=== PATIENT | female | born 1955 | race Hispanic/Latino ===

== ENCOUNTER 2017-08-22 01:00 | Emergency (ER) | payer BC, OTHER ==
[~2017-08-22 01:00] MED LIST: AMLO2.5T PO; ASPI-1197 PO; CHOL500050 PO; CLON0.1T PO; LEVO500T2 PO; LOSA50TA37 PO; METF500T6 PO
[2017-08-22 01:15] LABS: APPEARANCE,URINE Clear (CLEAR); BILIRUBIN,URINE Negative (NEGATIVE); COLOR,URINE Yellow (YELLOW); GLUCOSE, URINE (UA) TRACE mg/dL (NEGATIVE); KETONES,URINE Negative (NEGATIVE); LEUKOCYTE ESTERASE ,URINE Trace (NEGATIVE); NITRATE,URINE Negative (NEGATIVE); OCCULT BLOOD,URINE Small (NEGATIVE); PROTEIN,URINE POS 2+ (NEGATIVE); UROBILINOGEN,URINE 0.2 mg/dL (0.2-1.0)
[2017-08-22] MEDS ORDERED: METOPROLOL TARTRATE 1 MG/ML 5ML VIAL IV ONE (01:25)
[2017-08-22] MEDS ORDERED: ASPIRIN 325 MG TABLET ONE (01:25)
[2017-08-22 01:27] LABS: RBC,URINE 0-1 /HPF (0-1)
[2017-08-22 01:28] LABS: BACTERIA,URINE Rare /HPF (None Seen); SQUAMOUS EPITHELIAL CELL,UR Rare /HPF (0-2)
[2017-08-22 01:34] LABS: BASOPHILS % (AUTO) 0.8 % (0.0-5.0); EOSINOPHILS % (AUTO) 2.7 % (0.0-8.0); HEMATOCRIT 40.4 % (36-48); LYMPHOCYTES % (AUTO) 33.4 % (21.0-51.0); MEAN CORPUSCULAR HEMOGLOBIN 29.7 pg (27.0-33.0); MEAN CORPUSCULAR HGB CONC 34.6 g/dL (32.0-36.0); MEAN CORPUSCULAR VOLUME 85.7 fL (79-99); MONOCYTES % (AUTO) 5.1 % (3.0-13.0); NUCLEATED RED BLOOD CELLS 0.2 % (0.0-0.19); PLATELET COUNT (AUTO) 260 K/uL (130-400); RED BLOOD CELL COUNT(AUTO) 4.71 MIL/uL (4.00-5.50); RED CELL DISTRIBUTION WIDTH 13.6 % (11.0-15.5); WHITE BLOOD COUNT (AUTO) 11.1 K/uL (4.8-10.8)
[2017-08-22 01:42] LABS: CREATININE 1.4 mg/dL (0.5-1.5); POTASSIUM 3.4 mmol/L (3.5-5.1)
[2017-08-22 01:58] LABS: ALBUMIN 4.1 g/dL (3.5-5.0); BILIRUBIN,TOTAL 0.4 mg/dL (0.2-1.0); CREATINE KINASE MB 3.3 ng/mL (0.5-3.6); TOTAL PROTEIN, SERUM 7.8 g/dL (6.0-8.3)
== END 2017-08-22 05:50 | disposition home or self-care (01) ==
LOC: EDH 01:00
DX: I16.0 Hypertensive urgency (principal); E11.9 Type 2 diabetes mellitus without complications; K21.9 Gastro-esophageal reflux disease without esophagitis; E78.5 Hyperlipidemia, unspecified; Z88.0 Allergy status to penicillin; Z79.82 Long term (current) use of aspirin
CPT/HCPCS: 36415; 71045; 80053; 81001; 82550; 82553; 83690; 84484 ×2; 85025; 93005 ×2; 96374; 99285; J3490

== ENCOUNTER 2018-12-06 06:27 | Observation (INO) | payer BC, OTHER ==
[~2018-12-06] VITALS: Ht 167.6 cm; Wt 88.3 kg
[~2018-12-06 06:27] MED LIST changes: -AMLO2.5T PO; +AMLO2.5T4 PO; -LOSA50TA37 PO; +LOSA50TA64 PO; +METF-444 PO; -METF500T6 PO
[2018-12-06 06:48] LABS: BASOPHILS % (AUTO) 0.9 % (0.0-5.0); EOSINOPHILS % (AUTO) 3.5 % (0.0-8.0); HEMATOCRIT 39.7 % (36-48); LYMPHOCYTES % (AUTO) 28.9 % (21.0-51.0); MEAN CORPUSCULAR HEMOGLOBIN 29.9 pg (27.0-33.0); MEAN CORPUSCULAR HGB CONC 34.6 g/dL (32.0-36.0); MEAN CORPUSCULAR VOLUME 86.5 fL (79-99); MONOCYTES % (AUTO) 5.3 % (3.0-13.0); NEUTROPHILS % (AUTO) 61.4 % (40.0-77.0); PLATELET COUNT (AUTO) 270 K/uL (130-400); RED BLOOD CELL COUNT(AUTO) 4.59 MIL/uL (4.00-5.50); RED CELL DISTRIBUTION WIDTH 12.8 % (11.0-15.5); WHITE BLOOD COUNT (AUTO) 10.3 K/uL (4.8-10.8)
[2018-12-06] MEDS ORDERED: ASPIRIN 325 MG TABLET ONE (06:48)
[2018-12-06 07:02] LABS: CREATININE 1.5 mg/dL (0.5-1.5); POTASSIUM 3.4 mmol/L (3.5-5.1)
[2018-12-06 07:03] LABS: ALBUMIN 4.1 g/dL (3.5-5.0); BILIRUBIN,TOTAL 0.3 mg/dL (0.2-1.0)
[2018-12-06 07:22] LABS: INR 0.9 (0.85-1.15); PROTHROMBIN TIME 9.5 SEC (9.6-11.6)
[2018-12-06 07:48] LABS: B-TYPE NATRIURETIC PEPTIDE 6 pg/mL (0-100)
[2018-12-06 08:50] LABS: APPEARANCE,URINE Clear (CLEAR); BILIRUBIN,URINE Negative (NEGATIVE); COLOR,URINE Yellow (YELLOW); GLUCOSE, URINE (UA) 500 mg/dL (NEGATIVE); KETONES,URINE Negative (NEGATIVE); LEUKOCYTE ESTERASE ,URINE Trace (NEGATIVE); NITRATE,URINE Negative (NEGATIVE); OCCULT BLOOD,URINE Negative (NEGATIVE); PH,URINE 6.5 (5.0-8.0); PROTEIN,URINE Trace mg/dL (NEGATIVE); UROBILINOGEN,URINE 0.2 mg/dL (0.2-1.0)
[2018-12-06] MEDS: ASPIRIN 325 MG TABLET PO SCH (09:00)
[2018-12-06] MEDS: ENOXAPARIN SODIUM 30 MG/0.3 ML SQ SCH (09:00)
[2018-12-06] MEDS ORDERED: ACETAMINOPHEN 325 MG TAB PO PRN (09:00)
[2018-12-06] MEDS ORDERED: ONDANSETRON HCL 4 MG/2 ML VIAL IV PRN (09:00)
[2018-12-06 09:14] LABS: BACTERIA,URINE None Seen /HPF (None Seen); RBC,URINE 0-1 /HPF (0-1); SQUAMOUS EPITHELIAL CELL,UR 0-2 /HPF (0-2); WBC,URINE 0-1 /HPF (0-1)
[2018-12-06] MEDS ORDERED: ENOXAPARIN SODIUM 30 MG/0.3 ML SQ ONE (09:56)
[2018-12-06] MEDS ORDERED: NITROGLYCERIN 1GM/1 INCH PACKET TD ONE ×2 (09:56→17:55)
[2018-12-06 10:13] LABS: CREATINE KINASE, TOTAL 103 U/L (21-232); MYOGLOBIN 62 ng/mL (10-92); TROPONIN I < 0.04 ng/mL (0.00-0.06)
[2018-12-06] MEDS ORDERED: LIDOCAINE HCL-MPF 1% 2ML VIAL IV PRN (12:15)
[2018-12-06] MEDS ORDERED: POTASSIUM CHLORIDE 20 MEQ ERTAB PO PRN (12:15)
[2018-12-06] MEDS ORDERED: POTASSIUM CHLORIDE 20MEQ/100ML 100 ML IV PRN (12:15)
[2018-12-06] MEDS ORDERED: GLUCAGON 1MG KIT 1 MG ML IM PRN (12:15)
[2018-12-06] MEDS ORDERED: DEXTROSE 50%-WATER 50 ML DISP.SYRIN IV PRN (12:15)
[2018-12-06] MEDS ORDERED: POTASSIUM CHLORIDE 10% ELIXIR 20 MEQ/15 ML UDCUP PO PRN (12:15)
[2018-12-06 16:55] LABS: CREATINE KINASE, TOTAL 91 U/L (21-232); MYOGLOBIN 60 ng/mL (10-92); TROPONIN I < 0.04 ng/mL (0.00-0.06)
[2018-12-06 18:50] VITALS: BP 185/119
[2018-12-06 20:00] VITALS: BP 185/119
[2018-12-06] MEDS ORDERED: ERGO500014 PO (20:25)
[2018-12-06] MEDS ORDERED: CLON0.1T PO (20:25)
[2018-12-06] MEDS ORDERED: AMLO5TAB9 PO (20:25)
[2018-12-06] MEDS ORDERED: LOSA100T58 PO (20:25)
[2018-12-06] MEDS ORDERED: ATOR10 PO (20:25)
[2018-12-06] MEDS ORDERED: METF-445 PO (20:25)
[2018-12-06] MEDS ORDERED: PANT40TA25 PO (20:25)
[2018-12-06] MEDS: ACETAMINOPHEN 325 MG TAB PO PRN (20:33)
[2018-12-06] MEDS: INSULIN HUMULIN R 100 UNIT/ML 3ML SQ SCH (21:02)
[2018-12-06] MEDS ORDERED: CLONIDINE HCL 0.1 MG TABLET PO PRN (21:15)
[2018-12-06 22:13] VITALS: BP 164/94
[2018-12-07] VITALS (7 sets, daily range): BP systolic 131–170; BP diastolic 72–95
[2018-12-07] MEDS: NITROGLYCERIN 1GM/1 INCH PACKET TD SCH ×3 (01:15→17:35)
[2018-12-07 01:35] LABS: CREATINE KINASE, TOTAL 70 U/L (21-232); MYOGLOBIN 55 ng/mL (10-92); TROPONIN I < 0.04 ng/mL (0.00-0.06)
[2018-12-07] MEDS: ACETAMINOPHEN 325 MG TAB PO PRN ×2 (02:41→23:05)
[2018-12-07 06:23] LABS: HEMATOCRIT 38.1 % (36-48); MEAN CORPUSCULAR HEMOGLOBIN 29.8 pg (27.0-33.0); MEAN CORPUSCULAR HGB CONC 33.9 g/dL (32.0-36.0); MEAN CORPUSCULAR VOLUME 87.8 fL (79-99); NUCLEATED RED BLOOD CELLS 0.1 % (0.0-0.19); PLATELET COUNT (AUTO) 265 K/uL (130-400); RED BLOOD CELL COUNT(AUTO) 4.34 MIL/uL (4.00-5.50); WHITE BLOOD COUNT (AUTO) 9.9 K/uL (4.8-10.8)
[2018-12-07 06:39] LABS: CREATININE 1.3 mg/dL (0.5-1.5); POTASSIUM 3.6 mmol/L (3.5-5.1)
[2018-12-07 06:50] LABS: EOSINOPHILS % (MANUAL) 4 % (1-6); LYMPHOCYTES % (MANUAL) 26 % (22-44); MAN.DIFF COMMENT-IMPRESSION MANUAL DIFFERENTIAL; MONOCYTES % (MANUAL) 5 % (2-9); PLATELET MORPHOLOGY COMMENT ADEQUATE; REACTIVE LYMPHOCYTES 1 % (0-0); SEGMENTED NEUTROPHILS % 64 % (40-70)
[2018-12-07] MEDS: INSULIN HUMULIN R 100 UNIT/ML 3ML SQ SCH ×4 (06:58→21:00)
[2018-12-07] MEDS: ASPIRIN 325 MG TABLET PO SCH (08:50)
[2018-12-07] MEDS: ASPIRIN 81MG TAB.CHEW PO SCH (08:51)
[2018-12-07] MEDS: ENOXAPARIN SODIUM 30 MG/0.3 ML SQ SCH (08:51)
[2018-12-07] MEDS: PANTOPRAZOLE SODIUM 40 MG TABLET.DR PO SCH (08:51)
[2018-12-07] MEDS: METFORMIN HCL 850 MG TABLET PO SCH ×2 (08:51→21:22)
[2018-12-07] MEDS: LOSARTAN 100 MG TABLET PO SCH (08:51)
[2018-12-07] MEDS ORDERED: AMLODIPINE BESYLATE 5 MG TAB PO SCH (09:00)
--- NOTE | 2018-12-07 10:35 | NUR ---
CONSULT Dr. Singh's office called for new consult, voice message left with information, awaiting call back.
--- NOTE | 2018-12-07 15:55 | NUR ---
ANNIKA-PA MARIA GUADALUPE Shields notified that records were unable to be obtained from Dr. Blair office since results will not be revealed until December 21 as per Rosaura (salsa dance instructor). He stated they will come by later to see pt.
--- NOTE | 2018-12-07 17:15 | NUR ---
MD VISIT Dr. Singh in to see pt, new orders received and will carry out.
--- NOTE | 2018-12-07 19:31 | NUR ---
cm note met with patient and family, pt resides at home with family. no dme.. no services independent with adls and self care. no dc needs.
[2018-12-07] MEDS ORDERED: ATORVASTATIN CALCIUM 10 MG TABLET PO SCH (21:00)
[2018-12-08] VITALS: BP 162/96
[2018-12-08] MEDS: NITROGLYCERIN 1GM/1 INCH PACKET TD SCH ×3 (00:42→16:58)
[2018-12-08] MEDS: ACETAMINOPHEN 325 MG TAB PO PRN (03:10)
[2018-12-08 04:00] VITALS: BP 137/73
[2018-12-08] MEDS: INSULIN HUMULIN R 100 UNIT/ML 3ML SQ SCH ×3 (05:58→16:30)
[2018-12-08 07:30] VITALS: BP 146/100
[2018-12-08] MEDS: ASPIRIN 325 MG TABLET PO SCH (08:14)
[2018-12-08] MEDS: LOSARTAN 100 MG TABLET PO SCH (08:14)
[2018-12-08] MEDS: METFORMIN HCL 850 MG TABLET PO SCH (08:14)
[2018-12-08] MEDS: PANTOPRAZOLE SODIUM 40 MG TABLET.DR PO SCH (08:14)
[2018-12-08] MEDS: ASPIRIN 81MG TAB.CHEW PO SCH (08:14)
[2018-12-08] MEDS: ENOXAPARIN SODIUM 30 MG/0.3 ML SQ SCH (08:15)
[2018-12-08] MEDS ORDERED: VERAPAMIL HCL 240 MG SRTAB PO SCH (09:00)
[2018-12-08 11:00] VITALS: BP 132/86
[2018-12-08 16:00] VITALS: BP 157/90
--- NOTE | 2018-12-08 16:18 | NUR ---
DCP CM met with pt discussed dc plans. Pt is independent prior to admission, lives at home with spouse. Denies any equipments/services. Pt feels safe to go back home, still drives, spouse able to assist with transportation and needs as necessary. DC plan to home once stable. CM to cont to follow up. Addendum: 12/08/18 at 1620 by EUFEMIA WHITTEN LVN CM Amended: Links added.
--- NOTE | 2018-12-08 18:06 | NUR ---
DISCHARGE Pt discharged home as MD, all belongings given to pt taken to lobby in wheelchair. Telepack removed. Spouse at bedside.
[2018-12-13] MEDS ORDERED: ERGOCALCIFEROL (VITAMIN D2) 50,000 UNIT CAPSULE PO SCH (09:00)
== END 2018-12-08 18:05 | disposition home or self-care (01) ==
LOC: EDH 06:27 → EDHIP 08:56 → 4CH 18:11
PROVIDERS: ADMIT Family Medicine; ATTEND Family Medicine
DX: I20.8 Other forms of angina pectoris (principal); E11.9 Type 2 diabetes mellitus without complications; E87.6 Hypokalemia; E78.5 Hyperlipidemia, unspecified; I10 Essential (primary) hypertension; I45.10 Unspecified right bundle-branch block; Z85.528 Personal history of other malignant neoplasm of kidney; Z80.51 Family history of malignant neoplasm of kidney; Z82.0 Family history of epilepsy and other diseases of the nervous system; Z82.3 Family history of stroke; Z82.49 Family history of ischemic heart disease and other diseases of the circulatory system; Z82.5 Family history of asthma and other chronic lower respiratory diseases; Z83.3 Family history of diabetes mellitus; Z79.899 Other long term (current) drug therapy; Z79.01 Long term (current) use of anticoagulants
CPT/HCPCS: 36415 ×2; 71045; 80048; 80053; 81001; 82550 ×4; 82948 ×8; 83605 ×3; 83874 ×3; 83880; 84484 ×4; 85025 ×2; 85378; 85610; 85730; 87040 ×2; 87088; 87804 ×2; 93005 ×4; 96372 ×3; 99284; G0378 ×57; J1650 ×3; J1815

== ENCOUNTER 2019-06-19 20:07 | Emergency (ER) | payer BC, OTHER ==
[~2019-06-19 20:07] MED LIST changes: -AMLO2.5T4 PO; +AMLO5TAB9 PO; +ATOR10 PO; -CHOL500050 PO; +ERGO500014 PO; -LEVO500T2 PO; +LOSA100T58 PO; -LOSA50TA64 PO; -METF-444 PO; +METF-445 PO; +PANT40TA25 PO
[2019-06-19 20:26] LABS: APPEARANCE,URINE Clear (CLEAR); BILIRUBIN,URINE Negative (NEGATIVE); COLOR,URINE Yellow (YELLOW); GLUCOSE, URINE (UA) >=1000 mg/dL (NEGATIVE); KETONES,URINE Negative (NEGATIVE); LEUKOCYTE ESTERASE ,URINE Negative (NEGATIVE); NITRATE,URINE Negative (NEGATIVE); OCCULT BLOOD,URINE Negative (NEGATIVE); PROTEIN,URINE POS 1+ mg/dL (NEGATIVE); UROBILINOGEN,URINE 0.2 mg/dL (0.2-1.0)
[2019-06-19 20:36] LABS: BACTERIA,URINE Rare /HPF (None Seen); RBC,URINE 0-1 /HPF (0-1); SQUAMOUS EPITHELIAL CELL,UR Rare /HPF (0-2); WBC,URINE 0-1 /HPF (0-1)
[2019-06-19 20:38] LABS: URIC ACID CRYSTALS,URINE Rare /LPF (None Seen)
[2019-06-19] MEDS ORDERED: LABETALOL 20 MG/4 ML DISP.SYRIN IV ONE (20:39)
[2019-06-19 21:55] LABS: BASOPHILS % (AUTO) 0.7 % (0.0-5.0); HEMATOCRIT 40.3 % (36-48); LYMPHOCYTES % (AUTO) 26.1 % (21.0-51.0); MEAN CORPUSCULAR HEMOGLOBIN 28.3 pg (27.0-33.0); MEAN CORPUSCULAR HGB CONC 32.5 g/dL (32.0-36.0); MONOCYTES % (AUTO) 4.9 % (3.0-13.0); PLATELET COUNT (AUTO) 298 K/uL (130-400); RED BLOOD CELL COUNT(AUTO) 4.63 MIL/uL (4.00-5.50); RED CELL DISTRIBUTION WIDTH 12.7 % (11.0-15.5); WHITE BLOOD COUNT (AUTO) 12.1 K/uL (4.8-10.8)
[2019-06-19 22:06] LABS: CREATININE 1.8 mg/dL (0.5-1.5); POTASSIUM 3.8 mmol/L (3.5-5.1)
[2019-06-19 22:11] LABS: BILIRUBIN,TOTAL 0.2 mg/dL (0.2-1.0); TOTAL PROTEIN, SERUM 7.9 g/dL (6.0-8.3)
[2019-06-19] MEDS ORDERED: INSULIN HUMULIN R 100 UNIT/ML 3ML ONE (22:24)
== END 2019-06-19 23:36 | disposition home or self-care (01) ==
LOC: EDH 20:07
DX: I10 Essential (primary) hypertension (principal); E11.9 Type 2 diabetes mellitus without complications; E78.5 Hyperlipidemia, unspecified; K21.9 Gastro-esophageal reflux disease without esophagitis; Z88.0 Allergy status to penicillin; Z98.890 Other specified postprocedural states
CPT/HCPCS: 36415; 71046; 80053; 81001; 82550; 82948; 84484; 85025; 93005; 96374; 99285; J1815

== ENCOUNTER → 2022-05-01 | Outpatient (CLI) | payer OTHER ==
[~2022-05-01] MED LIST changes: +AMLO-257 PO; -AMLO5TAB9 PO; -PANT40TA25 PO; +PANT40TA54 PO
== END | disposition home or self-care (01) ==
LOC: RAH 12:01
PROVIDERS: ATTEND Surgery
DX: E21.3 Hyperparathyroidism, unspecified (principal)
CPT/HCPCS: 78070; A9500

== ENCOUNTER → 2022-06-27 | Outpatient (CLI) | payer OTHER | END | disposition home or self-care (01) | LOC: RAH 12:11 | PROVIDERS: ATTEND Surgery | DX: E21.3 Hyperparathyroidism, unspecified (principal) | CPT/HCPCS: 70490 ==